=== PATIENT | male | born 1960 | race African-American/Black ===

== ENCOUNTER 2022-12-24 11:43 | Inpatient (IN) | payer OTHER ==
[2022-12-24 12:19] VITALS: BMI 20.3
[2022-12-24] MEDS ORDERED: hydrOXYzine PAMOATE 25 MG CAPSULE (FP) PO PRN (14:05)
[2022-12-24] MEDS ORDERED: METHOCARBAMOL 500 MG TABLET PO PRN (14:05)
[2022-12-24] MEDS ORDERED: MAG HYDROX/AL HYDROX/SIMETH 30 ML UNIT-DOSE CUP PO PRN (14:05)
[2022-12-24] MEDS ORDERED: BENZONATATE 200 MG CAPSULE PO PRN (14:05)
[2022-12-24] MEDS ORDERED: guaiFENesin 600 MG TABLET.ER (FP) PO PRN (14:05)
[2022-12-24] MEDS ORDERED: ONDANSETRON *ODT* 4 MG TABLET SL PRN (14:05)
[2022-12-24] MEDS ORDERED: IBUPROFEN 400 MG TABLET (FP) PO PRN (14:05)
[2022-12-24] MEDS ORDERED: LORazepam 1 MG TABLET PO PRN (14:05)
[2022-12-24] MEDS ORDERED: BISMUTH SUBSALICYLATE 262 MG/15 ML BTL PO PRN (14:05)
[2022-12-24] MEDS ORDERED: MAGNESIUM HYDROX 2400MG/30ML ORAL SUSPENSION 30 ML CUP PO PRN (14:05)
[2022-12-24] MEDS ORDERED: NICOTINE 10 MG CARTRIDGE (INHALER) IH PRN (14:05)
[2022-12-24] MEDS ORDERED: NALOXONE HCL (KLOXXADO) 8 MG SPRAY NS PRN (14:05)
[2022-12-24] MEDS ORDERED: IBUPROFEN 600 MG TABLET (FP) PO PRN (14:05)
[2022-12-24] MEDS ORDERED: LOPERAMIDE HCL 2 MG CAPSULE PO PRN (14:05)
[2022-12-24] MEDS ORDERED: DICYCLOMINE HCL 10 MG CAPSULE PO PRN (14:05)
[2022-12-24] MEDS ORDERED: BENZOCAINE/MENTHOL (CHLORASEPTIC ) LOZENGE MM PRN (14:05)
[2022-12-24] MEDS ORDERED: ACETAMINOPHEN 325 MG TABLET (FP) PO PRN (14:05)
[2022-12-24] MEDS ORDERED: POLYETHYLENE GLYCOL (HEALTHYLAX) 3350 17 GM PACKET PO PRN (14:05)
[2022-12-24] MEDS ORDERED: NALOXONE HCL 0.4 MG/ML VIAL IM PRN (14:05)
[2022-12-24] MEDS ORDERED: NICOTINE 7 MG/24 HOURS TOPICAL PATCH TD PRN (14:11)
[2022-12-24] MEDS ORDERED: NICOTINE POLACRILEX 2 MG GUM BUC PRN (14:12)
[2022-12-24] MEDS ORDERED: cloNIDine HCL 0.1 MG TABLET PO PRN (14:15)
[2022-12-24] MEDS ORDERED: LORazepam 2 MG TABLET PO SCH (17:00)
[2022-12-24] MEDS: LORazepam 1 MG TABLET PO SCH ×2 (17:38→22:39)
[2022-12-24] MEDS ORDERED: MELATONIN 5 MG TABLETS PO SCH (22:00)
[2022-12-24] MEDS ORDERED: THIAMINE HCL 100 MG TABLET (FP) PO SCH (22:00)
[2022-12-24] MEDS: SODIUM CHLORIDE NASAL SPRAY 44 ML BOTTLE NS SCH (23:49)
[2022-12-25] MEDS: LORazepam 1 MG TABLET PO SCH ×3 (05:50→17:57)
[2022-12-25] MEDS ORDERED: FAMOTIDINE 20 MG TABLET PO SCH (10:00)
[2022-12-25] MEDS ORDERED: PRENATAL VITAMINS W/ FOLIC ACID TABLET (FP) PO SCH (10:00)
[2022-12-25] MEDS: SODIUM CHLORIDE NASAL SPRAY 44 ML BOTTLE NS SCH (10:58)
[2022-12-25 11:23] LABS: HEMATOCRIT 31.7 % (35.4-49); HEMOGLOBIN 10.8 GM/dL (11.7-16.9); MCH 33.6 pg (25.7-33.7); MCHC 34.1 g/dl (32.0-35.9); MEAN CELL VOLUME 98.4 fl (80-96); MEAN PLT VOLUME 9.5 fl (7.5-11.1); PLATELET COUNT 124 10^3/uL (134-434); RBC 3.22 M/mm3 (4.00-5.60); RDW 14.2 % (11.9-15.9); WHITE BLOOD COUNT 4.2 K/mm3 (4.0-10.0)
[2022-12-25 11:39] LABS: ALBUMIN 2.2 g/dl (3.4-5.0); BLOOD UREA NITROGEN 5.9 mg/dL (7-18); CALCIUM 8.3 mg/dL (8.5-10.1)
[2022-12-25 11:43] LABS: BILIRUBIN,TOTAL 2.3 mg/dL (0.2-1); CREATININE 0.5 mg/dL (0.55-1.3); TOT PROT 9.1 g/dl (6.4-8.2)
[2022-12-25 19:24] VITALS: BP 136/92; RESP 16; TEMP 98.4
[2022-12-25 19:27] VITALS: PULSE 99
[2022-12-26] MEDS ORDERED: LORazepam 1 MG TABLET PO SCH (05:00)
[2022-12-27] MEDS ORDERED: LORazepam 0.5 MG TABLET PO PRN
[2022-12-27] MEDS ORDERED: LORazepam 0.5 MG TABLET PO SCH (05:00)
[2022-12-28] MEDS ORDERED: LORazepam 0.5 MG TABLET PO ONE (05:00)
== END 2022-12-25 19:30 | disposition left against medical advice (07) | DRG 770 ==
LOC: YASAS 11:43 → Y6N 15:18
PROVIDERS: ADMIT Allergy & Immunology; ATTEND Surgery
PROC: HZ2ZZZZ Detoxification Services for Substance Abuse Treatment (ICD-10-PCS; principal; 2022-12-24)
DX: F10.230 Alcohol dependence with withdrawal, uncomplicated (principal); F11.20 Opioid dependence, uncomplicated; F17.210 Nicotine dependence, cigarettes, uncomplicated; F32.A Depression, unspecified; M54.50 Low back pain, unspecified; G89.29 Other chronic pain; R76.11 Nonspecific reaction to tuberculin skin test without active tuberculosis; Z99.89 Dependence on other enabling machines and devices; Z86.19 Personal history of other infectious and parasitic diseases
CPT/HCPCS: 36415; 71045-TC-FY; 80053; 80061; 85027; 86780; 93005; 93010; C9803-CS; U0003; U0005

== ENCOUNTER 2023-07-16 18:26 | Inpatient (IN) | payer OTHER ==
[2023-07-16 19:38] VITALS: BMI 20.3
[2023-07-16] MEDS ORDERED: LORazepam 1 MG TABLET PO PRN (20:05)
[2023-07-16] MEDS ORDERED: BENZONATATE 200 MG CAPSULE PO PRN (20:05)
[2023-07-16] MEDS ORDERED: MAGNESIUM HYDROX 2400MG/30ML ORAL SUSPENSION 30 ML CUP PO PRN (20:05)
[2023-07-16] MEDS ORDERED: MAG HYDROX/AL HYDROX/SIMETH 30 ML UNIT-DOSE CUP PO PRN (20:05)
[2023-07-16] MEDS ORDERED: NALOXONE HCL (KLOXXADO) 8 MG SPRAY NS PRN (20:05)
[2023-07-16] MEDS ORDERED: NALOXONE HCL 0.4 MG/ML VIAL IM PRN (20:05)
[2023-07-16] MEDS ORDERED: IBUPROFEN 400 MG TABLET (FP) PO PRN (20:05)
[2023-07-16] MEDS ORDERED: DICYCLOMINE HCL 10 MG CAPSULE PO PRN (20:05)
[2023-07-16] MEDS ORDERED: hydrOXYzine PAMOATE 25 MG CAPSULE (FP) PO PRN (20:05)
[2023-07-16] MEDS ORDERED: guaiFENesin 600 MG TABLET.ER (FP) PO PRN (20:05)
[2023-07-16] MEDS ORDERED: POLYETHYLENE GLYCOL (HEALTHYLAX) 3350 17 GM PACKET PO PRN (20:05)
[2023-07-16] MEDS ORDERED: BISMUTH SUBSALICYLATE 524 MG/30 ML PO PRN (20:05)
[2023-07-16] MEDS ORDERED: BENZOCAINE/MENTHOL (CHLORASEPTIC ) LOZENGE MM PRN (20:05)
[2023-07-16] MEDS ORDERED: NICOTINE POLACRILEX 4 MG GUM BUC PRN (20:05)
[2023-07-16] MEDS ORDERED: LOPERAMIDE HCL 2 MG CAPSULE PO PRN (20:05)
[2023-07-16] MEDS ORDERED: ONDANSETRON *ODT* 4 MG TABLET SL PRN (20:05)
[2023-07-16] MEDS ORDERED: IBUPROFEN 600 MG TABLET (FP) PO PRN (20:05)
[2023-07-16] MEDS ORDERED: ACETAMINOPHEN 325 MG TABLET (FP) PO PRN (20:05)
[2023-07-16] MEDS ORDERED: MELATONIN 5 MG TABLETS PO SCH (22:00)
[2023-07-16] MEDS ORDERED: THIAMINE HCL 100 MG TABLET (FP) PO SCH (22:00)
[2023-07-16] MEDS: LORazepam 2 MG TABLET PO SCH (22:10)
[2023-07-16] MEDS: PRENATAL VITAMINS W/ FOLIC ACID TABLET (FP) PO SCH (22:13)
[2023-07-17] MEDS: LORazepam 2 MG TABLET PO SCH ×3 (05:55→18:26)
[2023-07-17 10:14] LABS: POTASSIUM 3.2 mmol/L (3.5-5.1)
[2023-07-17 10:24] LABS: ALBUMIN 2.6 g/dl (3.4-5.0); BLOOD UREA NITROGEN 6.2 mg/dL (7-18); CALCIUM 8.3 mg/dL (8.5-10.1)
[2023-07-17 10:27] LABS: BILIRUBIN,TOTAL 1.4 mg/dL (0.2-1); CREATININE 0.5 mg/dL (0.55-1.3)
[2023-07-17 10:29] LABS: TOT PROT 8.9 g/dl (6.4-8.2)
[2023-07-17 10:37] LABS: HEMATOCRIT 31.8 % (35.4-49); HEMOGLOBIN 10.7 GM/dL (11.7-16.9); MCH 33.6 pg (25.7-33.7); MCHC 33.6 g/dl (32.0-35.9); MEAN CELL VOLUME 100.2 fl (80-96); MEAN PLT VOLUME 10.2 fl (7.5-11.1); PLATELET COUNT 75 10^3/uL (134-434); RBC 3.17 M/mm3 (4.00-5.60); RDW 13.5 % (11.9-15.9); WHITE BLOOD COUNT 3.1 K/mm3 (4.0-10.0)
[2023-07-17] MEDS: PRENATAL VITAMINS W/ FOLIC ACID TABLET (FP) PO SCH (10:53)
[2023-07-17] MEDS ORDERED: POTASSIUM CHLORIDE ORAL LIQUID 20 MEQ/15 ML PO ONE (12:30)
[2023-07-17 13:12] VITALS: RESP 18
[2023-07-17 18:03] VITALS: BP 162/94; PULSE 80; TEMP 97
[2023-07-18] MEDS ORDERED: LORazepam 1 MG TABLET PO SCH (05:00)
[2023-07-19] MEDS ORDERED: LORazepam 0.5 MG TABLET PO PRN
[2023-07-19] MEDS ORDERED: LORazepam 0.5 MG TABLET PO SCH (05:00)
[2023-07-20] MEDS ORDERED: LORazepam 0.5 MG TABLET PO ONE (05:00)
== END 2023-07-17 20:00 | disposition left against medical advice (07) | DRG 770 ==
LOC: YASAS 18:26 → Y3N 21:28
PROVIDERS: ADMIT Allergy & Immunology; ATTEND Psychiatry & Neurology Pain Medicine
PROC: HZ2ZZZZ Detoxification Services for Substance Abuse Treatment (ICD-10-PCS; principal; 2023-07-16)
DX: F10.230 Alcohol dependence with withdrawal, uncomplicated (principal); F11.20 Opioid dependence, uncomplicated; F17.210 Nicotine dependence, cigarettes, uncomplicated; E87.6 Hypokalemia; K21.9 Gastro-esophageal reflux disease without esophagitis; K74.60 Unspecified cirrhosis of liver; B18.2 Chronic viral hepatitis C; Z86.11 Personal history of tuberculosis; Z99.89 Dependence on other enabling machines and devices
CPT/HCPCS: 36415; 80053; 80307; 85027; 86780; 87635; 87811